=== PATIENT | female | born 1960 | race Two or more races ===

== ENCOUNTER 2019-03-09 05:55 | Day surgery (SDC) | payer OTHER ==
[~2019-03-09 05:55] MED LIST: LIPITOR PO; NORVASC5 MG PO; PROZAC40 MG PO
== END 2019-03-09 14:50 | disposition home or self-care (01) ==
LOC: CIR.AMB 05:55
DX: N95.0 Postmenopausal bleeding (principal)

== ENCOUNTER 2019-07-03 14:33 | Inpatient (IN) | payer OTHER ==
[~2019-07-03] VITALS: Ht 152.4 cm; Wt 92.5 kg
[2019-07-03] MEDS ORDERED: [UNRECOGNIZED DRUG - OTHER] PO (14:55)
[2019-07-03] MEDS ORDERED: ZYRTEC10 M3 PO (14:55)
[2019-07-03] MEDS ORDERED: [UNRECOGNIZED DRUG - OTHER] (14:57)
[2019-07-03] MEDS ORDERED: BACITRACIN (14:57)
[2019-07-06] MEDS ORDERED: LIPITOR20 MG PO (08:15)
[2019-07-06] MEDS ORDERED: BETAMETHASONE V60 ML (08:17)
[2019-07-06] MEDS ORDERED: CLOBETASOL EMOL15 GM (08:18)
[2019-07-06] MEDS ORDERED: BACITRACIN3.5 GM (08:18)
== END 2019-07-09 10:09 | disposition home or self-care (01) | DRG 743 ==
LOC: O/R 07-06 06:00 → OB/GYN 07-06 06:00
PROVIDERS: ADMIT Obstetrics & Gynecology
PROC: 0UT70ZZ Resection of Bilateral Fallopian Tubes, Open Approach (ICD-10-PCS; 2019-07-06)
PROC: 0UT20ZZ Resection of Bilateral Ovaries, Open Approach (ICD-10-PCS; 2019-07-06)
PROC: 0UT90ZZ Resection of Uterus, Open Approach (ICD-10-PCS; principal; 2019-07-06 10:00)
DX: N85.01 Benign endometrial hyperplasia (principal); N72 Inflammatory disease of cervix uteri; N83.292 Other ovarian cyst, left side; N83.291 Other ovarian cyst, right side